=== PATIENT | male | born 1965 | race Two or more races ===

== ENCOUNTER → 2025-03-15 | Outpatient (CLI) | payer OTHER | LOC: M WUC 08:34 | PROVIDERS: ATTEND Physician Assistant | DX: J22 Unspecified acute lower respiratory infection (principal) ==

== ENCOUNTER → 2025-03-15 | Outpatient (CLI) | payer OTHER ==
[2025-03-15 11:57] LABS: PLATELET COUNT, AUTOMATED 157 10^3/uL (150-450)
== END ==
LOC: M WUC 08:31
PROVIDERS: ATTEND Physician Assistant
DX: D69.6 Thrombocytopenia, unspecified (principal)

== ENCOUNTER → 2025-10-04 | Outpatient (CLI) | payer OTHER ==
[~2025-10-04] MED LIST: ISOVUE-370 76% 100 ML VIAL As Ordered ONE
== END ==
LOC: M RAD 14:41
PROVIDERS: ATTEND Physician Assistant
DX: I73.9 Peripheral vascular disease, unspecified (principal); I25.10 Atherosclerotic heart disease of native coronary artery without angina pectoris; G62.9 Polyneuropathy, unspecified; K76.0 Fatty (change of) liver, not elsewhere classified; K57.90 Diverticulosis of intestine, part unspecified, without perforation or abscess without bleeding
CPT/HCPCS: 75635; Q9967